=== PATIENT | male | born 1990 | race Caucasian/White ===

== ENCOUNTER 2019-06-29 18:49 | Inpatient (IN) | payer OTHER ==
[~2019-06-29] VITALS: Ht 170.2 cm; Wt 72.6 kg
--- NOTE | 2019-06-29 19:05 | NUR ---
SE RECIBE AL PACIENTE ALERTA Y ORIENTADO EN NIYA QUINTIN ESFERAS. PACIENTE REFIRE QUE VIENE POR DOLOR ABDOMINAL DESDE EL SABADO. PACIENTE REFIERE QUE AL EVACUAR HOY DENNISE ESCRETA DE COLOR MARY.
--- NOTE | 2019-06-29 20:18 | NUR ---
PACIENTE ALERTA Y ORIENTADO EN LAS QUINTIN ESFERAS, SE TRAN MUESTRAS DE ROSA BAJO MEDIDAS ASEPTICAS PACIENTE ORIENTADO SOBRE PROCEDIMIENTO VERBALIZA ENTENDER. SE ORIENTA SOBRE ESTUDIO VERBALIZA ENTENDER.
== END 2019-07-01 15:35 | disposition home or self-care (01) | DRG 343 ==
LOC: ER 18:49 → SURG 22:46 → O/R 22:46 → SEC-K 22:46 → O/R 06-30 07:41 → SURG 06-30 11:09
PROVIDERS: ADMIT Surgery
PROC: 0DTJ4ZZ Resection of Appendix, Percutaneous Endoscopic Approach (ICD-10-PCS; principal; 2019-06-30 05:45)
DX: K36 Other appendicitis (principal)

== ENCOUNTER → 2020-08-24 08:56 | Outpatient (CLI) | payer OTHER | END | disposition home or self-care (01) | LOC: PPH VACUNA 08:56 | DX: Z23 Encounter for immunization (principal) ==

== ENCOUNTER 2020-09-14 00:24 | Outpatient (CLI) | payer OTHER | END 2020-09-14 00:25 | disposition home or self-care (01) | LOC: PPH VACUNA 00:24 | DX: Z23 Encounter for immunization (principal) ==